=== PATIENT | female | born 1960 | race Caucasian/White ===

== ENCOUNTER 2019-10-10 23:14 | Emergency (ER) | payer BC, OTHER ==
[2019-10-10] MEDS ORDERED: OXYCODONE-ACETAMINOPHEN 5-325 MG TABLET PO ONE (23:25)
--- NOTE | 2019-10-10 23:34 | ER Document Report ---
ED Medical Screen (RME) - General Stated Complaint: RIGHT ARM PAIN FROM FALL Time Seen by Provider: 10/10/19 23:25 Mode of Arrival: Medic Information source: Patient Notes: Patient is a 59-year-old female presenting to the emergency department chief complaint of pain to her chin and fell from a standing position when walking down some steps. She only missed the last step. She landed onto her right arm. She is not on any blood thinners. Strong radial pulse, no obvious deformity. Patient is in a splint from EMS. I have greeted and performed a rapid initial assessment of this patient. A comprehensive ED assessment and evaluation of the patient, analysis of test results and completion of the medical decision making process will be conducted by additional ED providers. I have specifically instructed the patient or family members with the patient to immediately return to any nursing staff should anything change in the patient's condition or with their chief complaint.
--- NOTE | 2019-10-11 00:15 | RADIOLOGY REPORT (SQ) ---
2 VIEWS OF RIGHT HUMERUS 2 VIEWS OF RIGHT FOREARM HISTORY: Arm pain post fall. COMPARISON: None. FINDINGS: There is an acute moderately displaced and comminuted fracture involving the proximal humeral diaphysis. No evidence of dislocation. There is diffuse surrounding soft tissue swelling. No foreign bodies seen. No acute fracture is seen in the right forearm. IMPRESSION: Acute displaced and comminuted fracture of the proximal right humerus.
--- NOTE | 2019-10-11 00:46 | ER Document Report ---
ED General - General Stated Complaint: RIGHT ARM PAIN FROM FALL Time Seen by Provider: 10/10/19 23:25 Primary Care Provider: GILMER COPELAND JR, DO [ACTIVE PROVISIONAL STAFF] - Follow up as needed KULWANT REYEZ DO [ACTIVE STAFF] - Follow up as needed Mode of Arrival: Medic Information source: Patient Notes: Patient is a 59-year-old female presents the emergency department after suffering a mechanical fall. Patient is here visiting from [place] via boat. They have driven their boat from [place] to [place]. Today she was stepping down missed a step and fell landing onto her right arm. She is complaining of pain in the forearm and humerus area. - Related Data Allergies/Adverse Reactions: Penicillins Allergy (Verified 10/11/19 01:20) morphine Adverse Reaction (Verified 10/11/19 01:20) Hallucinations Past Medical History - General Information source: Patient - Social History Smoking Status: Never Smoker Frequency of alcohol use: None Drug Abuse: None Family History: Reviewed & Not Pertinent - Medical History Medical History: Negative Review of Systems - Review of Systems Musculoskeletal: See HPI -: Yes All other systems reviewed and negative Physical Exam - Vital signs Vitals: Temp 97.9 F 10/11/19 01:09 - Notes Notes: PHYSICAL EXAMINATION: GENERAL: Well-appearing, well-nourished and in no acute distress. HEAD: Atraumatic, normocephalic. EYES: Pupils equal round extraocular movements intact, conjunctiva are normal. ENT: Nares patent NECK: Normal range of motion LUNGS: No respiratory distress Musculoskeletal: Limited rom to right arm, swelling at humerous. Strong radial pulse, cap refill less than 3 seconds. NEUROLOGICAL: Normal speech, normal gait. PSYCH: Normal mood, normal affect. SKIN: Warm, Dry, normal turgor, no rashes or lesions noted. Course - Re-evaluation Re-evalutation: Discussed case with attending physician, Dr. Boyle. Patient will be placed in a splint and will be provided with pain medication and strict ED return precautions. Splint placed, right arm remains neurovascularly intact. Patient will board in the ED overnight as she and her are here on vacation via boat from [place]. She will not be able to safely get back onto the boat. She will follow-up with ortho on Sunday. - Vital Signs Vital signs: Temp Pulse Resp BP Pulse Ox 98.1 F 80 16 132/68 H 98 10/11/19 04:50 10/11/19 10:29 10/11/19 10:29 10/11/19 10:29 10/11/19 10:29 Procedures - Immobilization Right arm posterior Pre-Proc Neuro Vasc Exam: Normal Immobilizer type: Long arm posterior, Sling Performed by: PCT Post-Proc Neuro Vasc Exam: Normal Alignment checked and good: Yes Discharge - Discharge Clinical Impression: Right humeral fracture Qualifiers: Encounter type: initial encounter Humerus Location: shaft Fracture type: closed Fracture morphology: comminuted Fracture alignment: displaced Qualified Code(s): S42.351A - Displaced comminuted fracture of shaft of humerus, right arm, initial encounter for closed fracture Condition: Stable Disposition: HOME, SELF-CARE Additional Instructions: You have a displaced fracture of the humerus. This will likely require surgical repair. Please call orthopedics as soon as possible to schedule an appointment. Please let them know that you were seen in the emergency department and were told to follow-up WILIAM. In the meanwhile please use the narcotic pain medication for severe pain. Please use caution when taking this. You may apply ice to the area. Elevate as best as possible. Keep the splint in place until seen and cleared by orthopedics. Return to the emergency department any new or worsening concerns. Prescriptions: Oxycodone HCl/Acetaminophen [Percocet 5-325 mg Tablet] 1 tab PO Q6H PRN #20 tablet PRN Reason: Referrals: KULWANT REYEZ DO [ACTIVE STAFF] - Follow up as needed GILMER COPELAND JR, DO [ACTIVE PROVISIONAL STAFF] - Follow up as needed
[2019-10-11] MEDS ORDERED: HYDROCODONE/ACETAMINOPHEN 5-325 MG (6 TAB/ER DISP) PO PRN (00:52)
[2019-10-11] MEDS ORDERED: MORPHINE SULFATE 10 MG/ML INJ IV ONE (01:01)
[2019-10-11] MEDS ORDERED: KETOROLAC TROMETHAMINE INJ/PF 30 MG/1 ML SDV IV ONE (01:01)
[2019-10-11] MEDS ORDERED: FENTANYL CITRATE INJ/PF 100 MCG/2 ML AMPUL IV ONE (01:14)
[2019-10-11 10:31] VITALS: BP 132/68
== END 2019-10-11 10:08 | disposition home or self-care (01) ==
LOC: ER 23:14
PROC: 2W3AX1Z Immobilization of Right Upper Arm using Splint (ICD-10-PCS; principal; 2019-10-10)
DX: S42.351A Displaced comminuted fracture of shaft of humerus, right arm, initial encounter for closed fracture (principal); M79.601 Pain in right arm; M79.631 Pain in right forearm; W19.XXXA Unspecified fall, initial encounter; Z88.0 Allergy status to penicillin
CPT/HCPCS: 29105; 99283; 96374; 96375; 73090; 73060; J3010; J1885